=== PATIENT | female | born 1955 | race Caucasian/White ===

== ENCOUNTER 2017-01-12 14:45 | Emergency (ER) | payer MEDICARE, BC ==
--- NOTE | 2017-01-12 16:31 | UC ---
Skin Complaint HPI - HPI Summary HPI Summary: patient mowed the lawn yesterday, noticed a tick in the upper left thigh this afternoon. - History of Current Complaint Time Seen by Provider: 01/12/17 16:17 Stated Complaint: TICK Hx Obtained From: Patient ?: No Onset/Duration: Sudden Onset, Lasting Hours Skin Exposure Onset/Duration: Hours Ago Timing: Constant Onset Severity: Mild Current Severity: None Location: Discrete Character: Redness Aggravating: Nothing Alleviating: Nothing Associated Signs & Symptoms: Positive: Negative - Allergy/Home Medications Allergies/Adverse Reactions: Allergies Allergy/AdvReac Type Severity Reaction Status Date / Time Sulfa Antibiotics Allergy Nausea And Verified 03/16/14 12:31 Vomiting Review of Systems Constitutional: Negative Skin: Other - tick in thigh Eyes: Negative ENT: Negative Respiratory: Negative Cardiovascular: Negative Gastrointestinal: Negative Genitourinary: Negative Motor: Negative Neurovascular: Negative Musculoskeletal: Negative Neurological: Negative Psychological: Negative All Other Systems Reviewed And Are Negative: Yes PMH/Surg Hx/FS Hx/Imm Hx Previously Healthy: Yes - Family History Known Family History: Negative: Hypertension - Social History Alcohol Use: None Substance Use Type: None Smoking Status (MU): Never Smoked Tobacco Physical Exam Triage Information Reviewed: Yes Appearance: Well-Appearing, Well-Nourished, Pain Distress Vital Signs Reviewed: Yes Eye Exam: Normal Eyes: Positive: Conjunctiva Clear ENT Exam: Normal ENT: Positive: Hearing grossly normal, Pharynx normal, TMs normal Dental Exam: Normal Neck exam: Normal Neck: Positive: Supple, Nontender, No Lymphadenopathy Respiratory Exam: Normal Respiratory: Positive: Chest non-tender, Lungs clear, Normal breath sounds Cardiovascular Exam: Normal Cardiovascular: Positive: RRR, No Murmur, Pulses Normal Abdominal Exam: Normal Abdomen Description: Positive: Nontender, No Organomegaly, Soft Bowel Sounds: Positive: Present Musculoskeletal Exam: Normal Musculoskeletal: Positive: Strength Intact, ROM Intact, No Edema Neurological Exam: Normal Neurological: Positive: Alert, Muscle Tone Normal Psychological Exam: Normal Skin: Positive: Other - tick in upper left thigh, removed without difficulty, mild erythema around site Course/Dx - Course Course Of Treatment: hx obtained, exam performed, meds reviewed, removed tick, educated on lyme disease - Differential Diagnoses - Skin Complaint Differential Diagnoses: Abscess, Tick Born Illness - Diagnoses Provider Diagnoses: tick bite Discharge - Discharge Plan Condition: Stable Disposition: HOME Patient Education Materials: Tick Bite (ED), Lyme Disease (ED) Additional Instructions: 1. your tick was removed today 2. Continue to check your skin after being outside. I have included info on lyme disease for your reading.
[2017-01-12 16:51] VITALS: BP 141/74
== END 2017-01-12 16:45 | disposition home or self-care (01) ==
LOC: UCCORT 14:45
DX: S70.362A Insect bite (nonvenomous), left thigh, initial encounter (principal); W57.XXXA Bitten or stung by nonvenomous insect and other nonvenomous arthropods, initial encounter; Z88.1 Allergy status to other antibiotic agents
CPT/HCPCS: 99211; G0463

== ENCOUNTER 2017-02-07 17:17 | Emergency (ER) | payer MEDICARE, BC | END 2017-02-07 18:30 | disposition left against medical advice (07) | LOC: UCEAST 17:17 | DX: S00.81XA Abrasion of other part of head, initial encounter (principal); X58.XXXA Exposure to other specified factors, initial encounter; Y93.9 Activity, unspecified; Y92.9 Unspecified place or not applicable; Z53.21 Procedure and treatment not carried out due to patient leaving prior to being seen by health care provider ==

== ENCOUNTER 2017-02-07 18:14 | Emergency (ER) | payer MEDICARE, BC ==
[2017-02-07 18:28] VITALS: BP 113/57
--- NOTE | 2017-02-07 18:46 | UC ---
Skin Complaint HPI - HPI Summary HPI Summary: 61 YO FEMALE WITH TICK NEAR RIGHT EYE ?DURATION WORKS IN GARDEN A LOT - History of Current Complaint Chief Complaint: UCGeneralIllness Time Seen by Provider: 02/07/17 18:23 Stated Complaint: SKIN COMPLAIN NEAR EYE Hx Obtained From: Patient Onset/Duration: Sudden Onset Timing: Constant Onset Severity: Mild Current Severity: None Pain Intensity: 0 Pain Scale Used: 0-10 Numeric Aggravating: Nothing Alleviating: Nothing Associated Signs & Symptoms: Positive: Negative Related History: Insect Bite/Sting - Allergy/Home Medications Allergies/Adverse Reactions: Allergies Allergy/AdvReac Type Severity Reaction Status Date / Time Sulfa Antibiotics AdvReac Nausea And Verified 02/07/17 18:19 Vomiting Review of Systems Constitutional: Negative Skin: Negative Eyes: Negative ENT: Negative Respiratory: Negative Cardiovascular: Negative Gastrointestinal: Negative Genitourinary: Negative Motor: Negative Neurovascular: Negative Musculoskeletal: Negative Neurological: Negative Psychological: Negative All Other Systems Reviewed And Are Negative: Yes PMH/Surg Hx/FS Hx/Imm Hx Previously Healthy: Yes - PARKER aneurysm - Surgical History Surgical History: Yes Surgery Procedure, Year, and Place: brain 2008 - Family History Known Family History: Negative: Hypertension - Social History Alcohol Use: None Substance Use Type: None Smoking Status (MU): Former Smoker Type: Cigarettes When Did the Patient Quit Smoking/Using Tobacco: 2008 Physical Exam Triage Information Reviewed: Yes Appearance: Well-Appearing, No Pain Distress, Well-Nourished Vital Signs: Initial Vital Signs Temp 99.3 F 02/07/17 18:20 Pulse 70 02/07/17 18:20 Resp 16 02/07/17 18:20 BP 113/57 02/07/17 18:20 Pulse Ox 99 02/07/17 18:20 Vital Signs Reviewed: Yes Eyes: Positive: Conjunctiva Clear ENT: Positive: Hearing grossly normal. Negative: Nasal congestion, Nasal drainage, Trismus, Muffled/hoarse voice Respiratory: Positive: Lungs clear, Normal breath sounds, No respiratory distress Cardiovascular: Positive: RRR, No Murmur Neurological: Positive: Alert, Muscle Tone Normal Psychological Exam: Normal Skin Exam: Other - tick near medial canthus of right eye-nymph ...removed in toto with forceps Course/Dx - Diagnoses Provider Diagnoses: TICK BITE. lyme disease prophylaxis Discharge - Discharge Plan Condition: Stable Disposition: HOME Prescriptions: DOXYcycline CAP(*) [DOXYcycline 100MG CAP(*)] 200 mg PO ONCE #2 cap Patient Education Materials: Tick Bite (ED) Referrals: Yenny Min PA [Primary Care Provider] - Additional Instructions: CALL FOR QUESTIONS RETURN FOR ANY PROBLEMS
== END 2017-02-07 18:47 | disposition home or self-care (01) ==
LOC: UCCORT 18:14
DX: S00.261A Insect bite (nonvenomous) of right eyelid and periocular area, initial encounter (principal); W57.XXXA Bitten or stung by nonvenomous insect and other nonvenomous arthropods, initial encounter; Y92.9 Unspecified place or not applicable; Z87.891 Personal history of nicotine dependence; Z88.2 Allergy status to sulfonamides
CPT/HCPCS: 99212; G0463

== ENCOUNTER 2017-02-08 18:58 | Emergency (ER) | payer MEDICARE, BC ==
[2017-02-08 19:59] VITALS: BP 116/75
--- NOTE | 2017-02-08 20:13 | UC ---
Skin Complaint HPI - HPI Summary HPI Summary: "she thinks she has a tick on the pinna of the right ear. She was here yesterday and there was a tick on her right eyebrow. She took 200 mg Doxy x1. checked her ears yesterday and there were no ticks. When she left she was very concerned that she had ticks hiding in her hair and ears and asked how she will know if she has ticks anywhere else. She was told that if she is concerned that there are other ticks on her she should have them looked at. So she came back today to have her ear looked at again." She was given doxy. she doesnt have any fevers, joints or rashes. she has a spot on her right external ear that she has been trying to look at with a mirror. - History of Current Complaint Chief Complaint: UCSkin Time Seen by Provider: 02/08/17 20:02 Stated Complaint: tick - Allergy/Home Medications Allergies/Adverse Reactions: Allergies Allergy/AdvReac Type Severity Reaction Status Date / Time Sulfa Antibiotics AdvReac Nausea And Verified 02/08/17 19:59 Vomiting Review of Systems Constitutional: Negative Skin: Other - spot in rt ear. Eyes: Negative ENT: Negative Respiratory: Negative Cardiovascular: Negative Gastrointestinal: Negative Genitourinary: Negative Motor: Negative Neurovascular: Negative Musculoskeletal: Negative Neurological: Negative Psychological: Negative All Other Systems Reviewed And Are Negative: Yes PMH/Surg Hx/FS Hx/Imm Hx - Surgical History Surgical History: Yes Surgery Procedure, Year, and Place: brain 2008 - Family History Known Family History: Negative: Hypertension - Social History Alcohol Use: None Substance Use Type: None Smoking Status (MU): Former Smoker Type: Cigarettes When Did the Patient Quit Smoking/Using Tobacco: 2008 Physical Exam Triage Information Reviewed: Yes Appearance: No Pain Distress - she was raising her voice to staff upon arrival and then calm when I saw her., Well-Nourished Vital Signs: Initial Vital Signs Temp 98.5 F 02/08/17 19:55 Pulse 81 02/08/17 19:55 Resp 16 02/08/17 19:55 BP 116/75 02/08/17 19:55 Pulse Ox 100 02/08/17 19:55 Vital Signs Reviewed: Yes Eye Exam: Normal ENT Exam: Normal ENT: Positive: Normal ENT inspection, Hearing grossly normal, Pharynx normal, TMs normal, Other: - right external ear with 2 -3 mm round flat scab with surrounding dried blood. not elevated. there is no evidence of a tic even through a magnified glass. no tics at scalp or either ear canal. Respiratory: Positive: Lungs clear Cardiovascular Exam: Normal Cardiovascular: Positive: RRR, No Murmur Abdominal Exam: Normal Musculoskeletal Exam: Normal Neurological Exam: Normal Psychological Exam: Normal Skin Exam: Normal Course/Dx - Differential Diagnoses - Skin Complaint Differential Diagnoses: Other - tic bite - Diagnoses Provider Diagnoses: right ear scab Discharge - Discharge Plan Condition: Stable Disposition: HOME Patient Education Materials: Tick Bite (ED) Referrals: Leyla Farooq MD [Primary Care Provider] - 3 Days Additional Instructions: I did not seen any signs of a tic in your areas of concern.
== END 2017-02-08 20:28 | disposition home or self-care (01) ==
LOC: UCCORT 18:58
DX: R23.4 Changes in skin texture (principal); Z87.891 Personal history of nicotine dependence; Z88.2 Allergy status to sulfonamides
CPT/HCPCS: 99211; G0463